=== PATIENT | male | born 1955 | race Hispanic/Latino ===

== ENCOUNTER 2022-05-17 11:15 | Emergency (ER) | payer BC ==
[~2022-05-17] VITALS: Ht 160 cm; Wt 65.9 kg
[2022-05-17] MEDS ORDERED: ANTIVERT25 M1 PO (12:53)
[2022-05-17] MEDS ORDERED: INSULIN REGULAR, HUMAN 100 UNIT/1 ML IV ONE (13:00)
[2022-05-17 13:28] VITALS: BP 120/71
== END 2022-05-17 13:30 | disposition home or self-care (01) ==
LOC: FSED 11:32
DX: R42 Dizziness and giddiness (principal); E11.65 Type 2 diabetes mellitus with hyperglycemia; I10 Essential (primary) hypertension; E78.5 Hyperlipidemia, unspecified
CPT/HCPCS: 36415; 70450; 80053; 82553; 82948; 84484; 85025; 93005; 99283

== ENCOUNTER 2022-05-19 10:45 | Emergency (ER) | payer BC ==
[~2022-05-19] VITALS: Ht 160 cm; Wt 65.8 kg
[~2022-05-19 10:45] MED LIST: ANTIVERT25 M1 PO
[2022-05-19] MEDS ORDERED: IBUPROFEN600 MG PO (12:22)
[2022-05-19] MEDS ORDERED: ACETAMINOPHEN-1 EAC4 PO (12:22)
== END 2022-05-19 17:49 | disposition home or self-care (01) ==
LOC: ER 11:51
DX: N32.9 Bladder disorder, unspecified (principal); I10 Essential (primary) hypertension; E11.9 Type 2 diabetes mellitus without complications; E78.5 Hyperlipidemia, unspecified
CPT/HCPCS: 99282